=== PATIENT | female | born 1975 | race Caucasian/White ===

== ENCOUNTER 2017-10-25 13:59 | Outpatient (REF) | payer OTHER, SELFPAY | END 2017-10-25 14:19 | LOC: NCHCN 13:59 | PROVIDERS: PCP Physician Assistant; Visit Provider Nurse Practitioner Family | DX: N39.0 Urinary tract infection, site not specified (principal) | CPT/HCPCS: 87077; 87086; 87186 ==

== ENCOUNTER 2018-08-15 22:06 | Outpatient (REF) | payer OTHER, SELFPAY | END 2018-08-15 22:26 | LOC: NCHCN 22:06 | PROVIDERS: PCP Physician Assistant; Visit Provider Nurse Practitioner Family | DX: N39.0 Urinary tract infection, site not specified (principal) | CPT/HCPCS: 87086 ==